=== PATIENT | female | born 1980 | race Caucasian/White ===

== ENCOUNTER 2023-01-13 12:14 | Emergency (ER) | payer MEDICAID ==
[~2023-01-13] VITALS: Ht 154.9 cm; Wt 71.7 kg
[2023-01-13 12:47] VITALS: BP 114/69; PULSE 86; RESP 15; TEMP 97.9; O2SAT 98
[2023-01-13 12:49] VITALS: BP 129/79; PULSE 76; RESP 18; TEMP 98.9; O2SAT 98
[2023-01-13 14:57] LABS: APPEARANCE,URINE SLIGHTLY CLOUDY (CLEAR); BILIRUBIN,URINE NEGATIVE (NEGATIVE); BLOOD, URINE NEGATIVE (NEGATIVE); COLOR,URINE YELLOW (YELLOW); LEUKOCYTE ESTERASE ,URINE NEGATIVE (NEGATIVE); NITRITE, URINE NEGATIVE (NEGATIVE); PROTEIN,URINE NEGATIVE (NEGATIVE); UGLUCOSE NEGATIVE (NEGATIVE); UROBILINOGEN,URINE 0.2 EU/dL (0.2 - 1)
[2023-01-13 16:19] VITALS: BP 117/68; PULSE 75; RESP 16; TEMP 97.5; O2SAT 98
== END 2023-01-13 16:23 | disposition short-term general hospital (02) ==
LOC: MED 12:14
DX: O30.002 Twin pregnancy, unspecified number of placenta and unspecified number of amniotic sacs, second trimester (principal); Z3A.16 16 weeks gestation of pregnancy
CPT/HCPCS: 76810; 81003; 99284; Q0092

== ENCOUNTER 2023-07-28 03:30 | Emergency (ER) | payer MEDICAID, OTHER ==
[~2023-07-28] VITALS: Ht 154.9 cm; Wt 33.8 kg
[2023-07-28 03:39] VITALS: BP 129/79; PULSE 74; RESP 17; TEMP 96.6; O2SAT 100
[2023-07-28 03:46] VITALS: O2SAT 100
[2023-07-28] MEDS ORDERED: LIDO28CR2 TP (03:53)
[2023-07-28] MEDS ORDERED: ACET-10509 PO (03:53)
[2023-07-28] MEDS: ACETAMINOPHEN EXTRA STRENGTH 500 MG TAB PO ONE (03:58)
[2023-07-28] MEDS: POLYETHYLENE GLYCOL 17 GM/PKT PO ONE (04:02)
== END 2023-07-28 04:15 | disposition home or self-care (01) ==
LOC: MED 03:30
DX: K64.4 Residual hemorrhoidal skin tags (principal); K59.00 Constipation, unspecified; Z79.899 Other long term (current) drug therapy
CPT/HCPCS: 99283

== ENCOUNTER 2023-08-22 06:08 | Emergency (ER) | payer OTHER ==
[~2023-08-22] VITALS: Ht 157.5 cm; Wt 69.4 kg
[~2023-08-22 06:08] MED LIST: ACET-10509 PO; LIDO28CR2 TP
[2023-08-22 06:23] VITALS: BP 126/84; PULSE 71; RESP 16; TEMP 97.9; O2SAT 98
[2023-08-22 07:41] VITALS: O2SAT 98
[2023-08-22] MEDS: KETOROLAC 30 MG/ML VIAL IM ONE (08:34)
[2023-08-22] MEDS: ACETAMINOPHEN EXTRA STRENGTH 500 MG TAB PO ONE (08:36)
[2023-08-22] MEDS ORDERED: ACET-10509 PO (10:09)
[2023-08-22] MEDS ORDERED: IBUP-2213 PO (10:09)
[2023-08-22 11:01] VITALS: BP 127/81; PULSE 67; RESP 17; TEMP 97.6; O2SAT 99
== END 2023-08-22 11:21 | disposition home or self-care (01) ==
LOC: MED 06:08
DX: M79.601 Pain in right arm (principal)
CPT/HCPCS: 73060; 96372; 99283; J1885